=== PATIENT | male | born 1995 | race Caucasian/White ===

== ENCOUNTER 2019-04-29 14:43 | Emergency (ER) | payer OTHER ==
[~2019-04-29] VITALS: Ht 172.7 cm; Wt 66.0 kg
[2019-04-29 14:55] VITALS: Ht 172.7 cm; Wt 66.0 kg
[2019-04-29] MEDS ORDERED: SOD CHLORIDE 0.9% 1,000 ML IV STA (16:30)
[2019-04-29] MEDS ORDERED: KETOROLAC 30 MG INJ IV STA (16:30)
[2019-04-29] MEDS ORDERED: LORAZEPAM 2 MG INJ IV ONE (17:00)
--- NOTE | 2019-04-29 17:34 | ERD ---
ER Documentation Chief Complaint Chief Complaint bib ra for anxiety HPI This patient is a 23-year-old male with past medical history of anxiety presenting to the emergency department complaining of intermittent lightheadedness and numbness to the right side of his body as well as visual changes for the past 2 weeks. He has noted an increase in his stress levels as well due to family issues. He states [place] today [place] he felt numbness to the right side of his body which has slightly improved. He denies any unilateral weakness. He took no medication for relief of symptoms. Symptoms are currently intermittent and moderate in severity. Other associated symptoms include intermittent chest pain and palpitations. Patient denies any fevers, chills, abdominal pain, current chest pain or palpitations, or other symptoms at this time. He adamantly denies any homicidal or suicidal ideation currently. ROS All systems reviewed and are negative except as per history of present illness. Medications Home Meds Active Scripts Lorazepam* (Ativan*) 0.5 Mg Tablet, 0.5 MG PO Q8H PRN for ANXIETY, #10 TAB Prov:REGGIE CORONADO PA-C 04/29/19 Allergies Allergies: Coded Allergies: No Known Allergy (Unverified , 04/29/19) PMhx/Soc Medical and Surgical Hx: pt denies Medical Hx, pt denies Surgical Hx Hx Alcohol Use: Yes Hx Substance Use: Yes Hx Tobacco Use: Yes Smoking Status: Current some day smoker FmHx Family History: No diabetes Physical Exam Vitals Physical Exam Const: No acute distress Head: Atraumatic Eyes: Normal Conjunctiva ENT: Normal External Ears, Nose and Mouth. Neck: Full range of motion. No meningismus. Resp: Clear to auscultation bilaterally Cardio: Regular rate and rhythm, no murmurs Abd: Soft, non tender, non distended. Normal bowel sounds. No rebound tenderness or guarding. No McBurney's point tenderness. Skin: No petechiae or rashes Back: No midline or flank tenderness Ext: No cyanosis, or edema Neuro: M/S: Alert and oriented Face: EOMI, face and pharynx with normal sensation and function Motor: Normal strength throughout Sensation: Subjective decreased sensation noted to the right side of the fac e and the right arm. Speech: Normal Cerebel: Normal coordination Normal gait Normal finger to nose Psych: Anxious. Denies homicidal or suicidal ideation. Results 24 hrs Laboratory Tests Test 04/29/19 16:35 04/29/19 16:49 Urine Color STRAW Urine Clarity CLEAR Urine pH 8.0 Urine Specific [place] 1.011 Urine Ketones NEGATIVE mg/dL Urine Nitrite NEGATIVE mg/dL Urine Bilirubin NEGATIVE mg/dL Urine Urobilinogen NEGATIVE mg/dL Urine Leukocyte Esterase NEGATIVE Constance/ul Urine Hemoglobin NEGATIVE mg/dL Urine Glucose NEGATIVE mg/dL Urine Total Protein NEGATIVE mg/dl Urine Opiates Screen Negative Urine Barbiturates Negative Urine Amphetamines Screen Negative Urine Benzodiazepines Screen Negative Urine Cocaine Screen Negative Urine Cannabinoids Positive White Blood Count 4.5 10^3/ul Red Blood Count 4.54 10^6/ul Hemoglobin 14.4 g/dl Hematocrit 43.1 % Mean Corpuscular Volume 94.9 fl Mean Corpuscular Hemoglobin 31.7 pg Mean Corpuscular Hemoglobin Concent 33.4 g/dl Red Cell Distribution Width 12.7 % Platelet Count 220 10^3/UL Mean Platelet Volume 10.0 fl Immature Granulocytes % 0.200 % Neutrophils % 58.7 % Lymphocytes % 29.5 % Monocytes % 10.0 % Eosinophils % 0.7 % Basophils % 0.9 % Nucleated Red Blood Cells % 0.0 /100WBC Immature Granulocytes # 0.010 10^3/ul Neutrophils # 2.7 10^3/ul Lymphocytes # 1.3 10^3/ul Monocytes # 0.5 10^3/ul Eosinophils # 0.0 10^3/ul Basophils # 0.0 10^3/ul Nucleated Red Blood Cells # 0.0 10^3/ul Prothrombin Time 13.0 Sec Prothrombin Time Ratio 1.0 INR International Normalized Ratio 0.97 Activated Partial Thromboplast Time 25.3 Sec Sodium Level 143 mmol/L Potassium Level 3.8 mmol/L Chloride Level 105 mmol/L Carbon Dioxide Level 28 mmol/L Anion Gap 10 Blood Urea Nitrogen 14 mg/dl Creatinine 1.10 mg/dl Est Glomerular Filtrat Rate mL/min > 60 mL/min Glucose Level 92 mg/dl Calcium Level 10.0 mg/dl Total Bilirubin 0.6 mg/dl Direct Bilirubin 0.00 mg/dl Indirect Bilirubin 0.6 mg/dl Aspartate Amino Transf (AST/SGOT) 23 IU/L Alanine Aminotransferase (ALT/SGPT) 14 IU/L Alkaline Phosphatase 58 IU/L Total Protein 8.3 g/dl Albumin 4.9 g/dl Globulin 3.40 g/dl Albumin/Globulin Ratio 1.44 Current Medications Medications Dose Sig/Brandi Start Time Status Last (Trade) Ordered Route PRN Stop Time Admin Dose Reason Admin Sodium 1,000 ml @ Q1H STAT 04/29/19 DC 04/29/19 Chloride 1,000 mls/hr IV 16:30 16:47 04/29/19 17:29 Ketorolac 30 mg ONCE STAT 04/29/19 DC 04/29/19 Tromethamine IV 16:30 16:47 (Toradol) 04/29/19 16:33 Lorazepam 1 mg ONCE ONCE 04/29/19 DC 04/29/19 (Ativan) IV 17:00 17:04 04/29/19 17:01 [place] [address] Radiology Main Line: [phone] DIAGNOSTIC IMAGING REPORT Patient: KAILEE BENNETT : 1995 Age: 23 Sex: M MR #: [id number] DOS: 04/29/19 1630 Ordering MD: REGGIE CORONADO PA-C Location: [facility] Room/Bed: PROCEDURE: CT Brain without contrast. CLINICAL INDICATION: Headache. TECHNIQUE: A CT of the brain without contrast was performed utilizing axial sections from the skull base through the vertex. The patient was scanned without intravenous contrast enhancement. Sagittal and coronal reformatted images were obtained using the data from the axial images. Total exam DLP is 634.23 mGy-cm. CTDIvol is 38.01 mGy. One or more of the following dose reduction techniques were used: Automated exposure control, adjustment of the mA and/or kV according to patient size, use of iterative reconstruction technique. DICOM images are available. COMPARISON: None available FINDINGS: There is normal bateman-white matter differentiation. The ventricles and cisterns are normal. There is no intracranial hemorrhage or space-occupying lesion. There is no skull fracture or lytic lesion. IMPRESSION: 1. Normal noncontrast CT scan of the brain. 2. No intracranial hemorrhage. RPTAT: QQ .José Luis Keenan MD, MD Date Time Electronically viewed and signed by .José Luis Keenan MD, MD on 04/29/2019 18:16 .R/ CC: REGGIE CORONADO PA-C [id number] [place] [address] Radiology Main Line: [phone] DIAGNOSTIC IMAGING REPORT Patient: KAILEE BENNETT : 1995 Age: 23 Sex: M MR #: [id number] DOS: 04/29/19 0000 Ordering MD: REGGIE CORONADO PA-C Location: [facility] Room/Bed: PROCEDURE: XR Chest. CLINICAL INDICATION: Chest pain. TECHNIQUE: Single frontal view. COMPARISON: None. FINDINGS: The lungs are clear. The heart size is normal. There is no pleural effusion. There is no pneumothorax. IMPRESSION: 1. Normal chest radiograph. RPTAT: QQ .José Luis Keenan MD, MD Date Time Electronically viewed and signed by .José Luis Keenan MD, MD on 04/29/2019 18:17 .R/ CC: REGGIE CORONADO PA-C [id number] Procedures/MDM 23-year-old male presenting to the emergency department complaining of intermittent lightheadedness, headache, chest pain, palpitations,decreased sensation to the right side of his body for the past 2 weeks. Patient does have history of anxiety, although he states he has not experienced lightheadedness in the past. This is a new symptom for him. Patient had some subjective decreased sensation to the right side of the face and the right arm on my examination. There was no unilateral weakness. The remainder of the neuro examination was within normal limits. Given the patient's history and physical examination, I felt that further work-up was warranted. ED course: Patient was immediately placed into a stretcher and IV line was established. He was administered IV fluids, IV Toradol, IV Ativan. On reevaluation, the patient was resting comfortable in no acute distress and stated he was improved. CT brain without contrast: No evidence of acute findings. The full report interpreted by the radiologist may be viewed above. Chest x-ray: No evidence of acute findings. The full report interpreted by the radiologist may be viewed above. EKG: Interpreted by ED physician. Rate/Rhythm: Normal Sinus Rhythm with a rate of 64 bpm. QRS, ST, T-waves: No changes consistent w/ acute ischemia Impression: No evidence of ischemia or arrhythmia Medical decision making: Patient symptoms are likely secondary to acute anxiety reaction. Much lower suspicion for CVA, TIA, intracranial hemorrhage, acute coronary syndrome, acute surgical abdomen, pneumothorax, aortic dissection, pulmonary and was not, or other emergencies. Patient is nontoxic and well- appearing with stable vital signs. He is improved in the department and he can be safely discharged home at this time with further outpatient follow-up. He was advised to have 24 to 48-hour follow-up with his primary care physician and return to the department immediately for any new or worsening or concerning symptoms. I shared my medical decision making with the patient and he was in agreement with the diagnosis, plan, need for follow-up, return precautions. Disclaimer: Inadvertent spelling and grammatical errors are likely due to EHR/dictation software use and do not reflect on the overall quality of patient care. Also, please note that the electronic time recorded on this note does not necessarily reflect the actual time of the patient encounter. Departure Diagnosis: Primary Impression: Anxiety reaction Condition: Fair Patient Instructions: Anxiety Reaction REGGIE CORONADO PA-C Apr 29, 2019 17:34
[2019-04-29] MEDS ORDERED: LORA-441 PO (18:53)
[2019-04-29 19:00] VITALS: BP 122/69; PULSE 90; RESP 16
== END 2019-04-29 19:14 | disposition home or self-care (01) ==
LOC: FTE 14:43
DX: F41.1 Generalized anxiety disorder (principal); F17.210 Nicotine dependence, cigarettes, uncomplicated; R07.9 Chest pain, unspecified
CPT/HCPCS: 70450; 71045; 80053; 80307; 81003; 85025; 85610; 85730; 93005; J1885; J2060; J7030; 36415; 96361; 96374; 96375